=== PATIENT | male | born 1965 | race Hispanic/Latino ===

== ENCOUNTER 2022-07-21 11:19 | Outpatient (CLI) | payer BC | END 2022-07-21 11:20 | disposition home or self-care (01) | LOC: CSHMRI 11:19 | PROVIDERS: ATTEND Nurse Practitioner Family | DX: S22.050A Wedge compression fracture of T5-T6 vertebra, initial encounter for closed fracture (principal); Z98.890 Other specified postprocedural states | CPT/HCPCS: 72146 ==